=== PATIENT | female | born 1960 | race Caucasian/White ===

== ENCOUNTER → 2020-08-04 | Outpatient (CLI) | payer BC ==
[2020-08-04 12:50] LABS: HCT 40.8 % (34.0-46.0); HGB 13.1 gm/dL (11.4-16.0); MCH 29.1 pg (25.0-35.0); MCHC 32.2 g/dL (31.0-37.0); MCV 90.3 fL (80.0-100.0); Mean Platelet Volume 7.3; Platelet Count 281 k/uL (150-450); RBC 4.52 m/uL (3.80-5.40); RDW 13.1 % (11.5-15.5); WBC 4.4 k/uL (3.8-10.6)
[2020-08-04 22:30] LABS: African American GFR (CKD) 63.2 (60.0-200.0); Albumin 4.7 g/dL (3.80-4.90); Albumin/Globulin Ratio 2.76 (1.60-3.17); Anion Gap 12.3 mmol/L (4.00-12.00); BUN/Creat Ratio 16.36 Ratio (12.00-20.00); Calcium 9.4 mg/dL (8.7-10.3); Carbon Dioxide 25.7 mmol/L (21.6-31.8); Globulin 1.7 g/dL (1.6-3.3); Non-African American GFR(CKD) 54.5 (60.0-200.0); Potassium 4.8 mmol/L (3.5-5.5); Total Bilirubin 0.5 mg/dL (0.2-1.2); Total Protein 6.4 g/dL (6.2-8.2)
[2020-08-04 22:38] LABS: Prolactin 2.9 ng/mL (2.8-29.2)
== END | disposition home or self-care (01) ==
LOC: LABWHC1 11:36
PROVIDERS: ATTEND Internal Medicine Endocrinology, Diabetes & Metabolism
DX: R53.83 Other fatigue (principal)
CPT/HCPCS: 36415; 80053; 82024; 82533; 82607; 84146; 84439; 84443; 84481; 85027

== ENCOUNTER 2020-08-12 08:19 | Outpatient (CLI) | payer BC ==
[2020-08-12 08:40] VITALS: BP 132/81; PULSE 71; RESP 16; TEMP 98.1
[2020-08-17 16:36] LABS: Metanephrine, Free <25 pg/mL (< OR = 57); Normetanephrine, Free 59 pg/mL (< OR = 148); Total, Free (MN + NMN) 59 pg/mL (< OR = 205)
== END 2020-08-16 08:19 | disposition home or self-care (01) ==
LOC: PROCWHC3 08:19
PROVIDERS: ATTEND Internal Medicine Endocrinology, Diabetes & Metabolism
DX: R23.2 Flushing (principal)
CPT/HCPCS: 36415; 83835

== ENCOUNTER → 2021-01-18 | Outpatient (CLI) | payer BC ==
[2021-01-18 19:45] LABS: Basophils # (A) 0.07 X 10*3/uL (0.00-0.10); Basophils % (A) 1.5 %; Eosinophils # (A) 0.16 X 10*3/uL (0.04-0.35); Eosinophils % (A) 3.5 %; HCT 40.6 % (37.2-46.3); Lymphocytes # (A) 1.35 X 10*3/uL (0.90-5.00); Lymphocytes % (A) 29.3 %; MCH 29.8 pg (27.0-32.0); MCV 93.1 fL (80.0-97.0); Mean Platelet Volume 10.2 fL (9.5-12.2); Monocytes # (A) 0.34 X 10*3/uL (0.20-1.00); Monocytes % (A) 7.4 %; Neutrophils # (A) 2.68 X 10*3/uL (1.80-7.70); Neutrophils % (A) 58.3 %; Platelet Count 282 X 10*3/uL (140-440); RBC 4.36 X 10*6/uL (4.10-5.20); RDW 12.9 % (11.5-14.5)
[2021-01-18 22:39] LABS: African American GFR (CKD) 63.2 (60.0-200.0); Albumin 4.8 g/dL (3.80-4.90); Albumin/Globulin Ratio 2.4 (1.60-3.17); Anion Gap 10.9 mmol/L (4.00-12.00); Calcium 9.8 mg/dL (8.7-10.3); Carbon Dioxide 27.1 mmol/L (21.6-31.8); Non-African American GFR(CKD) 54.5 (60.0-200.0); Potassium 4.7 mmol/L (3.5-5.5); Total Bilirubin 0.6 mg/dL (0.2-1.2); Total Protein 6.8 g/dL (6.2-8.2)
[2021-01-20 19:29] LABS: Peanut IgG <2.0 mcg/mL (< 2.0); Tomato IgG <2.0 mcg/mL (< 2.0)
[2021-01-20 19:31] LABS: Beef IgG 7.9 mcg/mL (< 2.0); Cow's Milk IgG 62.3 mcg/mL (< 2.0)
[2021-01-20 19:32] LABS: Chicken Meat IgG <2.0 mcg/mL (< 2.0); Potato IgG <2.0 mcg/mL (< 2.0); Soybean IgG <2.0 mcg/mL (< 2.0)
[2021-01-20 19:33] LABS: Corn IgG 2.2 mcg/mL (< 2.0); Wheat IgG 2.1 mcg/mL (< 2.0)
== END | disposition home or self-care (01) ==
LOC: LABWHC1 10:52
PROVIDERS: ATTEND Otolaryngology
DX: L56.4 Polymorphous light eruption (principal); J30.89 Other allergic rhinitis
CPT/HCPCS: 36415; 80053; 85025; 86001